=== PATIENT | male | born 1980 | race Asian ===

== ENCOUNTER 2024-12-09 13:16 | Emergency (ER) | payer BC ==
[~2024-12-09] VITALS: Ht 177.8 cm; Wt 94.5 kg
[2024-12-09] MEDS ORDERED: IBUPROFEN600 MG PO (14:23)
[2024-12-09] MEDS: LIDOCAINE HCL 2% LOCAL 20 ML VIAL INJ STA (14:30)
[2024-12-09 14:38] VITALS: PULSE 73; RESP 16; TEMP 97.1; O2SAT 97
== END 2024-12-09 14:38 | disposition home or self-care (01) ==
LOC: FSED 13:29
DX: M79.89 Other specified soft tissue disorders (principal); M70.21 Olecranon bursitis, right elbow
CPT/HCPCS: 99283